=== PATIENT | male | born 1935 | race Caucasian/White ===

== ENCOUNTER 2018-01-06 16:46 | Emergency (ER) | payer MEDICARE ==
[~2018-01-06] VITALS: Ht 175.3 cm; Wt 74.8 kg
[~2018-01-06 16:46] MED LIST: ALBIPROI; ALBU3IS INH; ALBU90OI; ALBU90OI61 INH; AMLO10; AMLO10 PO; AMOCLA875 PO; ASPI81CH PO; ASPI81EC; ATOR10; AZIT500 PO; Bystolic10 MG PO; CEPH500; CEPH500 PO; CLON.1; CLON.1 PO; CLOP75 PO; CODGUAEL PO; CYCL10 PO; ERGO400 PO; FINA5; FINA5 PO; FISH1000; FISH1000 PO; FLUSAL1005; FLUSAL2505 IH; FURO40; GABA100 PO; GUAI600T33; GUAI600T33 PO; HYDACE5 PO; HYDGUAL120; HYDGUAL120 PO; HYDHOMSY PO; IBUP200 PO; IBUP400 PO; IBUP800; IBUP800 PO; INDO50 PO; LEVA.63IS; LEVFLO500 PO; Lutein 15 MG S1 EACH PO; METO50ER PO; NIAC250ER PO; NIAC500ER PO; OMEP20ER; OMEP20ER PO; POTA8; PRAM.125 PO; PRAV20 PO; PREG75 PO; PROAIR RESPICL90 MCG INH; PROCODE120 PO; Prednisone20 MG PO; RXCYCL10 PO; RXHYDACE PO; SEPTRA DS; SPIR25 PO; SULTRIDS PO; TAMS.4ER; TAMS.4ER PO; THEO300ERA; TIOT18 IH; TIOT18 INH; TOLT4 PO; TORSE20 PO; TRIHYD253A; TRIHYD253A PO; TRIHYD253B PO; VERA100; Zithromax250 MG PO
[2018-01-06 18:02] LABS: BASOPHILS ABSOLUTE AUTO 0.04 K/mm3 (0.00-0.23); BASOPHILS PERCENT AUTO 1 % (0-2); EOSINOPHILS ABSOLUTE AUTO 0.06 K/mm3 (0.00-0.68); EOSINOPHILS PERCENT AUTO 1 % (0-6); Hematocrit 43.9 % (37.0-53.0); Hemoglobin 15.5 g/dL (13.5-17.5); IMMATURE GRAN ABSOLUTE AUTO 0.02 K/mm3 (0.00-0.10); IMMATURE GRAN PERCENT AUTO 0 % (0-1); LYMPHOCYTES ABSOLUTE AUTO 1.05 K/mm3 (0.84-5.20); LYMPHOCYTES PERCENT AUTO 18 % (21-46); MONOCYTES PERCENT AUTO 12 % (4-13); Mean Corpuscular HGB 31.1 pg (26.0-34.0); Mean Corpuscular HGB Conc 35.3 g/dL (31.5-36.5); Mean Corpuscular Volume 88 fL (80-100); Mean Platelet Volume 9.6 fL (9.1-12.4); NEUTROPHILS ABSOLUTE AUTO 3.83 K/mm3 (1.96-9.15); NEUTROPHILS PERCENT AUTO 67 % (41-73); Platelet Count 214 K/mm3 (150-400); RDW Coefficient Variation 12.9 % (11.7-14.2); RDW Standard Deviation 41.5 fL (35.1-46.3); Red Blood Cell Count 4.99 M/mm3 (4.30-5.90)
[2018-01-06 18:18] LABS: International Normalized Ratio 0.99; Prothrombin Time Results 10.2 Sec (9.7-11.5)
[2018-01-06 18:39] LABS: Alanine Aminotransfer (ALT/SGP 34 U/L (12-78); Albumin, Blood 3.7 g/dL (3.4-5.0); Alk Phos 116 U/L (50-136); Anion Gap 7 mmol/L (6-16); Aspartate Aminotrans (AST/SGOT 23 U/L (12-37); Bilirubin, Total 0.4 mg/dL (0.1-1.0); Blood Urea Nitrogen 16 mg/dL (8-24); Bun/Creatinine Ratio 15.8 (12.0-20.0); CO2, Blood 28 mmol/L (21-32); Calcium, Blood 9.2 mg/dL (8.5-10.1); Chloride, Blood 99 mmol/L (98-108); Creatinine, Blood 1.01 mg/dL (0.60-1.20); Globulin, Blood 3.8 g/dL (2.2-4.0); Glomerular Filtration Rate >60 (60-); Glucose, Blood 92 mg/dL (70-99); Sodium, Blood 134 mmol/L (136-145); Total Protein, Blood 7.5 g/dL (6.4-8.2)
== END 2018-01-06 20:48 | disposition left against medical advice (07) ==
LOC: ER 16:46
PROVIDERS: Emergency Medicine
DX: Z53.21 Procedure and treatment not carried out due to patient leaving prior to being seen by health care provider (principal)
CPT/HCPCS: 36415; 80053; 85025; 85610; 85730; 93005; 93010

== ENCOUNTER 2018-09-02 11:09 | Emergency (ER) | payer MEDICARE ==
[~2018-09-02] VITALS: Ht 177.8 cm; Wt 77.1 kg
== END 2018-09-02 12:01 | disposition home or self-care (01) ==
LOC: ER 11:09
DX: M53.3 Sacrococcygeal disorders, not elsewhere classified (principal); Z79.899 Other long term (current) drug therapy; Z85.118 Personal history of other malignant neoplasm of bronchus and lung; Z88.8 Allergy status to other drugs, medicaments and biological substances; J44.9 Chronic obstructive pulmonary disease, unspecified; I10 Essential (primary) hypertension; Z87.891 Personal history of nicotine dependence
CPT/HCPCS: 96372; 99283-25; J1100; J1885

== ENCOUNTER 2019-03-11 16:43 | Inpatient (IN) | payer MEDICARE ==
[~2019-03-11] VITALS: Ht 175.3 cm; Wt 65.2 kg
[~2019-03-11 16:43] MED LIST changes: +FLUT1DIS5 INH
[2019-03-11 17:20] LABS: BASOPHILS ABSOLUTE AUTO 0.02 K/mm3 (0.00-0.23); BASOPHILS PERCENT AUTO 0 % (0-2); EOSINOPHILS ABSOLUTE AUTO 0.01 K/mm3 (0.00-0.68); EOSINOPHILS PERCENT AUTO 0 % (0-6); Hematocrit 47.1 % (37.0-53.0); Hemoglobin 16.5 g/dL (13.5-17.5); IMMATURE GRAN ABSOLUTE AUTO 0.05 K/mm3 (0.00-0.10); IMMATURE GRAN PERCENT AUTO 0 % (0-1); LYMPHOCYTES ABSOLUTE AUTO 0.22 K/mm3 (0.84-5.20); LYMPHOCYTES PERCENT AUTO 2 % (21-46); MONOCYTES ABSOLUTE AUTO 0.81 K/mm3 (0.16-1.47); MONOCYTES PERCENT AUTO 7 % (4-13); Mean Corpuscular Volume 88 fL (80-100); Mean Platelet Volume 9.5 fL (9.1-12.4); NEUTROPHILS ABSOLUTE AUTO 11.26 K/mm3 (1.96-9.15); NEUTROPHILS PERCENT AUTO 91 % (41-73); Platelet Count 207 K/mm3 (150-400); RDW Coefficient Variation 13.7 % (11.7-14.2); RDW Standard Deviation 44.4 fL (35.1-46.3); Red Blood Cell Count 5.33 M/mm3 (4.30-5.90); White Blood Cell Count 12.37 K/mm3 (4.00-11.30)
[2019-03-11 17:39] LABS: Alanine Aminotransfer (ALT/SGP 29 U/L (12-78); Albumin, Blood 3.2 g/dL (3.4-5.0); Albumin/Globulin Ratio 0.9 (0.8-1.8); Alk Phos 110 U/L (50-136); Anion Gap 9 mmol/L (6-16); Aspartate Aminotrans (AST/SGOT 28 U/L (12-37); Bilirubin, Total 0.9 mg/dL (0.1-1.0); Blood Urea Nitrogen 16 mg/dL (8-24); Bun/Creatinine Ratio 16.5 (12.0-20.0); CO2, Blood 24 mmol/L (21-32); Calcium, Blood 9.1 mg/dL (8.5-10.1); Chloride, Blood 100 mmol/L (98-108); Creatinine, Blood 0.97 mg/dL (0.60-1.20); Globulin, Blood 3.4 g/dL (2.2-4.0); Glomerular Filtration Rate >60 (60-); Glucose, Blood 102 mg/dL (70-99); Sodium, Blood 133 mmol/L (136-145); Total Protein, Blood 6.6 g/dL (6.4-8.2)
[2019-03-11] MEDS ORDERED: TORSE20 PO (17:49)
[2019-03-11] MEDS ORDERED: Spironolactone25 MG PO (17:49)
[2019-03-11] MEDS ORDERED: Neurontin 100100 MG GT (17:50)
[2019-03-11] MEDS ORDERED: CELECOXIB200 MG PO (17:50)
[2019-03-11] MEDS ORDERED: FINA5 PO (18:58)
[2019-03-11] MEDS ORDERED: Mirapex0.125 MG PO (19:00)
[2019-03-11] MEDS ORDERED: ALBU2.5V5 INH (19:02)
[2019-03-11 23:00] LABS: Source, Urine Clean Catch
[2019-03-11 23:03] LABS: Bilirubin, Urine Neg (Neg); Blood, Urine Neg (Neg); Glucose Qualitative, Urine Neg (Neg); Ketones, Urine 1+ (Neg); Leukocyte Esterase, Urine 1+ (Neg); Nitrite, Urine Neg (Neg); Protein, Urine 1+ (Neg); Urobilinogen, Urine NORM (Normal)
[2019-03-11 23:11] LABS: Appearance, Urine Clear (Clear); Color, Urine Amber (P-Yellow)
[2019-03-11 23:13] LABS: Bacteria Mod /hpf; Red Blood Cells, Urine 0-2 /hpf (0-2); Squamous Epithelial Cells Rare /hpf (Few); White Blood Cells, Urine 0-2 /hpf (0-5)
[2019-03-12 00:26] LABS: Adenovirus Not Detected (NOT DETECT); Bordetella pertussis Not Detected (NOT DETECT); Chlamydophila pneumoniae Not Detected (NOT DETECT); Coronavirus 229E Not Detected (NOT DETECT); Coronavirus HKU1 Not Detected (NOT DETECT); Coronavirus NL63 Not Detected (NOT DETECT); Coronavirus OC43 Not Detected (NOT DETECT); Human Metapneumovirus Not Detected (NOT DETECT); Human Rhinovirus/Enterovirus Detected (NOT DETECT); Influenza A Not Detected (NOT DETECT); Influenza A/2009-H1 Not Detected (NOT DETECT); Influenza A/H1 Not Detected (NOT DETECT); Influenza A/H3 Not Detected (NOT DETECT); Influenza B Not Detected (NOT DETECT); Mycoplasma pneumoniae Not Detected (NOT DETECT); Parainfluenza Virus 1 Not Detected (NOT DETECT); Parainfluenza Virus 2 Not Detected (NOT DETECT); Parainfluenza Virus 3 Not Detected (NOT DETECT); Parainfluenza Virus 4 Not Detected (NOT DETECT); Respiratory Syncytial Virus Not Detected (NOT DETECT)
[2019-03-12 04:02] LABS: Hematocrit 41.8 % (37.0-53.0); Hemoglobin 14.5 g/dL (13.5-17.5); Mean Corpuscular HGB 31.2 pg (26.0-34.0); Mean Corpuscular HGB Conc 34.7 g/dL (31.5-36.5); Mean Corpuscular Volume 90 fL (80-100); Mean Platelet Volume 10.1 fL (9.1-12.4); Platelet Count 147 K/mm3 (150-400); RDW Coefficient Variation 13.9 % (11.7-14.2); RDW Standard Deviation 45.9 fL (35.1-46.3); Red Blood Cell Count 4.65 M/mm3 (4.30-5.90); White Blood Cell Count 10.56 K/mm3 (4.00-11.30)
[2019-03-12 04:28] LABS: Alanine Aminotransfer (ALT/SGP 33 U/L (12-78); Albumin, Blood 2.5 g/dL (3.4-5.0); Albumin/Globulin Ratio 0.9 (0.8-1.8); Alk Phos 71 U/L (50-136); Anion Gap 8 mmol/L (6-16); Aspartate Aminotrans (AST/SGOT 58 U/L (12-37); Bilirubin, Total 0.7 mg/dL (0.1-1.0); Blood Urea Nitrogen 17 mg/dL (8-24); Bun/Creatinine Ratio 20.5 (12.0-20.0); CO2, Blood 25 mmol/L (21-32); Calcium, Blood 8.9 mg/dL (8.5-10.1); Chloride, Blood 102 mmol/L (98-108); Creatinine, Blood 0.83 mg/dL (0.60-1.20); Globulin, Blood 2.9 g/dL (2.2-4.0); Glomerular Filtration Rate >60 (60-); Glucose, Blood 107 mg/dL (70-99); Potassium, Blood 4.2 mmol/L (3.5-5.5); Sodium, Blood 135 mmol/L (136-145); Total Protein, Blood 5.4 g/dL (6.4-8.2)
--- NOTE | 2019-03-12 05:01 | NUR ---
END OF SHIFT SUMMMARY ASSUMED CARE FROM ED, [facility] SPEAKING APPROPRIATLEY WITH STAFF. PT APPEAREDD TO BE AND HAS REMAINED TO BE ALERT AND FULLY ORIENTED. THIS RN HAS NOT WITNESSED ANY SIGN OF CONFUSION OR DISORIENTATION. PT'S COUGHING HAS DECREASED DUE TO MEDICATION. STILL CONTINUES TO BE MOIST AND COARSE BUT NOT OFTEN AND NOT HARSH.PT HAS BEEN UP TO BATHROOM MULTIPLE TIMES THIS SHIFT, SOME SUCCESFUL AND SOMEUNABLE. PT HAD EPISODE OF DIARRHEA THAT RESULTED IN HIM SOILING UNDERWEAR, BED, AND GOWN. THIS HAS NOT HAPPENED SINCE. PT TITRATED FROM 2LNC TO 1LNC. O2 STILL IN PLACE DUE TO EXERTIOANL DYSPNEA. RESP PANEL COLLECTED AND UA COLLECTED. PT HAS NOT PRODUCED ANY SPUTUM OF YET BUT COLLECTION CUP IS AT BEDSIDE. PT HAS BEGUN TO USE CALL LIGHT APPROPRITELY BUT BED ALARM IS IN PLACE DUE TO RESP STATUS AND PT NOT USING THE CALL LIGHT APPROPRIATELY BEFORE. CALL LIGHT IS NEXT TO PT. WILL CONTNUE TO MONITOR PT UNTIL SHIFT CHANGE.
--- NOTE | 2019-03-12 17:39 | NUR ---
SHIFT SUMMARY PT ALERT AND ORIENTED. VS STABLE. O2 SATS REMAIN ABOVE 90% ON 2L NC. BP STABLE. HR AFIB IN THE 70'S. PT DENIES ANY PAIN. LS COARSE AND WHEEZES THROUGHOUT. PT REPORTS HIS COUGH HAS DECREASED THE DAY HAS PROGRESSED. PT ABLE TO WALK TO BATHROOM NEEDED WITH SBA. WILL CONTINUE TO MONITOR AND REPORT TO ONCOMING RN. CALL LIGHT IN REACH.
--- NOTE | 2019-03-13 05:32 | NUR ---
END OF SHIFT SUMMARY NO ACUTE CHANGES THIS SHIFT. VSS. LUNG SOUNDS CONTINUE TO BE VERY MOIST AND COARSE. GUIFENASIN PRN ORDER OBTAINED AND HAS BEEN ADMINISTERED. PT HAS REQUIRED MULTIPLE BREAthing treatments this shift but has maintained spo2's >94% even when not on nc 02. PT HAS CONTINUED TO BE PLEasant aND COOPERAtive WITH STAFF. PT HAS BEEN USING CALL LIGHT APPROPRIATELY. STAFF HAS BEEN ENCOURAGING THE USE OF THE FLUTTER VALVE, PT COMPLIANT WITH THIS WHEN REMINDED. WILL CONTINUE TO MONITOR PT UNTIL SHIFT CHANGE.
--- NOTE | 2019-03-13 12:50 | NUR ---
Upon receiving a spiritual care referral, I visit patient. Patient told me up front that his hearing aide battery had and he lost his other hearing aide completely so communication would be difficult. We managed to do ok with a little effort on my part. 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 Patient clearly has a soft spot for his family and horses (although he had to put his last horse down a few years ago). Patient would tend to loop back to things he had said and repeat himself but maybe add a bit of details to the story. Patient tells me that he his Hinduism of [place] background but that he has gone to buddhism in years. Patient finds inspiration in working hard and being outside and from his family. I listen empathically and provide companionship. Patient responds well and voices gratitude for the visit. I will continue to remain available to patient and family.
--- NOTE | 2019-03-13 17:48 | NUR ---
SHIFT SUMMARY PT ALERT AND ORIENTED. VS STABLE. O2 SATS REMAIN ABOVE 90% ON RA. LS WHEEZES THROUGHOUT. PT COUGHING OCCASIONALLY, BUT NONPRODUCTIVE. BP STABLE. HR AFIB WITH BBB. PT AMBULATED THROUGH HALLS MULTIPLE TIMES TODAY AND TOLERATED WELL. PT DENIES ANY PAIN. WILL CONTINUE TO MONITOR AND REPORT TO ONCOMING RN. CALL LIGHT IN REACH.
[2019-03-14 03:53] LABS: Hematocrit 38.7 % (37.0-53.0); Hemoglobin 13.7 g/dL (13.5-17.5); Mean Corpuscular HGB 31.3 pg (26.0-34.0); Mean Corpuscular HGB Conc 35.4 g/dL (31.5-36.5); Mean Corpuscular Volume 88 fL (80-100); Platelet Count 161 K/mm3 (150-400); RDW Coefficient Variation 14.1 % (11.7-14.2); RDW Standard Deviation 45.8 fL (35.1-46.3); Red Blood Cell Count 4.38 M/mm3 (4.30-5.90); White Blood Cell Count 8.69 K/mm3 (4.00-11.30)
[2019-03-14 04:10] LABS: Anion Gap 7 mmol/L (6-16); Blood Urea Nitrogen 19 mg/dL (8-24); Bun/Creatinine Ratio 26.1 (12.0-20.0); CO2, Blood 26 mmol/L (21-32); Calcium, Blood 9.3 mg/dL (8.5-10.1); Chloride, Blood 100 mmol/L (98-108); Creatinine, Blood 0.73 mg/dL (0.60-1.20); Glomerular Filtration Rate >60 (60-); Glucose, Blood 96 mg/dL (70-99); Potassium, Blood 3.9 mmol/L (3.5-5.5); Sodium, Blood 133 mmol/L (136-145)
--- NOTE | 2019-03-14 05:45 | NUR ---
END OF SHIFT SUMMARY NO ACUTE CHANGES. VSS. LUNG SOUNDS CONTINUE TO SOUND VERY COARSE AND WHEEZY, PER PT THE WHEEZINESS AND SOME COARSENESS IS BASELINE FOR HIM. PT HAS BEEN UP AND OUT OF BED A FEW TIMES THIS SHIFT BUT HAS OTHERWUISE BEEN RESTING IN ROOM W/ THE LIGHTS OUT. PT HAS RECEIVED SOME BREATHING TREATEMENTS. OTHERWISE PT HAS REQUIRED LITTLE FROM STAFF BUT USES CALL LIGHT APPROPRIATELY. WILL CONTINUE TO MONITOR PT UNTIL SHIFT CHANGE.
[2019-03-14] MEDS ORDERED: Q-Tussin100 MG/5 M PO (11:02)
[2019-03-14] MEDS ORDERED: GUAI600T33 PO (11:03)
[2019-03-14] MEDS ORDERED: METO25 PO (11:03)
[2019-03-14] MEDS ORDERED: XARELTO15 MG PO (11:04)
[2019-03-14] MEDS ORDERED: ALBU3IS INH (11:05)
[2019-03-14] MEDS ORDERED: Prednisone10 MG PO (11:06)
--- NOTE | 2019-03-14 14:18 | NUR ---
DISCHARGE NOTE PT ALERT AND ORIENTED. ORDERS FOR DISCHARGE PROVIDED THIS AFTERNOON. PT STATES HE IS COMFORTABLE AND READY TO GO HOME. NEW MEDICATIONS EDUCATED TO PT. DISCHARGE INSTRUCTIONS PROVIDED. IV REMOVED. PT TAKEN OUT BY WHEELCHAIR.
== END 2019-03-14 14:18 | disposition home or self-care (01) | DRG 871 ==
LOC: ER 16:43 → PCU 19:13
PROVIDERS: Emergency Medicine; Internal Medicine; ADMIT Internal Medicine
DX: A41.89 Other specified sepsis (principal); J96.01 Acute respiratory failure with hypoxia; J44.1 Chronic obstructive pulmonary disease with (acute) exacerbation; J44.0 Chronic obstructive pulmonary disease with (acute) lower respiratory infection; R65.20 Severe sepsis without septic shock; Z87.891 Personal history of nicotine dependence; N40.0 Benign prostatic hyperplasia without lower urinary tract symptoms; I10 Essential (primary) hypertension; M19.90 Unspecified osteoarthritis, unspecified site; G62.9 Polyneuropathy, unspecified; K21.9 Gastro-esophageal reflux disease without esophagitis; Z85.118 Personal history of other malignant neoplasm of bronchus and lung; B34.8 Other viral infections of unspecified site; J20.6 Acute bronchitis due to rhinovirus; I48.91 Unspecified atrial fibrillation
CPT/HCPCS: 0099U; 36415; 71046; 80048; 80053; 81001; 82947; 83605; 85025; 85027; 87040; 87086; 93005; 93010; 94640; 94667; 94760; 96365; 96375; 99285-25; J0456; J0696; J1650; J1956; J2930; J7050; J7120

== ENCOUNTER 2019-03-22 16:21 | Observation (INO) | payer MEDICARE ==
[~2019-03-22] VITALS: Ht 175.3 cm; Wt 64.0 kg
[~2019-03-22 16:21] MED LIST changes: +ALBU2.5V5 INH; +CELECOXIB200 MG PO; +METO25 PO; +Mirapex0.125 MG PO; +Neurontin 100100 MG GT; +Prednisone10 MG PO; +Q-Tussin100 MG/5 M PO; +Spironolactone25 MG PO; +XARELTO15 MG PO
[2019-03-22 17:11] LABS: BASOPHILS ABSOLUTE AUTO 0.03 K/mm3 (0.00-0.23); BASOPHILS PERCENT AUTO 0 % (0-2); EOSINOPHILS PERCENT AUTO 0 % (0-6); Hematocrit 46.4 % (37.0-53.0); Hemoglobin 16.4 g/dL (13.5-17.5); IMMATURE GRAN ABSOLUTE AUTO 0.16 K/mm3 (0.00-0.10); IMMATURE GRAN PERCENT AUTO 1 % (0-1); LYMPHOCYTES ABSOLUTE AUTO 0.81 K/mm3 (0.84-5.20); LYMPHOCYTES PERCENT AUTO 6 % (21-46); MONOCYTES ABSOLUTE AUTO 0.91 K/mm3 (0.16-1.47); MONOCYTES PERCENT AUTO 6 % (4-13); Mean Corpuscular HGB 31.6 pg (26.0-34.0); Mean Corpuscular HGB Conc 35.3 g/dL (31.5-36.5); Mean Corpuscular Volume 89 fL (80-100); Mean Platelet Volume 9.8 fL (9.1-12.4); NEUTROPHILS PERCENT AUTO 87 % (41-73); Platelet Count 270 K/mm3 (150-400); RDW Coefficient Variation 13.7 % (11.7-14.2); RDW Standard Deviation 44.8 fL (35.1-46.3); Red Blood Cell Count 5.19 M/mm3 (4.30-5.90); White Blood Cell Count 14.71 K/mm3 (4.00-11.30)
[2019-03-22 17:36] LABS: Alanine Aminotransfer (ALT/SGP 61 U/L (12-78); Albumin, Blood 2.9 g/dL (3.4-5.0); Albumin/Globulin Ratio 0.9 (0.8-1.8); Alk Phos 85 U/L (50-136); Anion Gap 8 mmol/L (6-16); Aspartate Aminotrans (AST/SGOT 25 U/L (12-37); Bilirubin, Total 0.8 mg/dL (0.1-1.0); Blood Urea Nitrogen 26 mg/dL (8-24); Bun/Creatinine Ratio 35.2 (12.0-20.0); CO2, Blood 25 mmol/L (21-32); Calcium, Blood 8.9 mg/dL (8.5-10.1); Chloride, Blood 96 mmol/L (98-108); Creatinine, Blood 0.74 mg/dL (0.60-1.20); Globulin, Blood 3.3 g/dL (2.2-4.0); Glomerular Filtration Rate >60 (60-); Glucose, Blood 122 mg/dL (70-99); Sodium, Blood 129 mmol/L (136-145); Total Protein, Blood 6.2 g/dL (6.4-8.2)
[2019-03-22] MEDS ORDERED: XARELTO10 MG PO (20:07)
[2019-03-22] MEDS ORDERED: CLON.1 PO (20:10)
--- NOTE | 2019-03-22 21:45 | NUR ---
PCU ADMIT PT BROUGHT TO PCU RM 04 FROM ER BY CHAUNCEY @ 9952. PT A&O X4. ABLE TO TO STAND AND AMBULATE TO PCU BED W/ SBA. VSS. LUNG SOUNDS DIM. SPO2 > 92% ON 3L NC. MONITOR SHOWS AFIB, HR 90-120'S, CARDIZEM GTT @ 5 MG/HR. WILL CONTINUE TO MONITOR AND PROVIDE CARE.
[2019-03-22] MEDS ORDERED: PREDNISONE PO (23:46)
[2019-03-22] MEDS ORDERED: AMLO10 PO (23:47)
[2019-03-22] MEDS ORDERED: TIOT18 INH (23:48)
[2019-03-22] MEDS ORDERED: ASPI81CH PO (23:48)
[2019-03-22] MEDS ORDERED: BISA5EC (23:49)
[2019-03-22] MEDS ORDERED: IBUP400 PO (23:50)
--- NOTE | 2019-03-23 01:25 | NUR ---
CRITICAL LACTIC / CALL TO MD CALL TO MD PAULINO @ APPROX 0000 TO REPORT LACTIC ACID OF 3.7 THIS SHIFT. NO NEW ORDERS FROM MD AT THIS TIME.
[2019-03-23 03:37] LABS: Hematocrit 44.7 % (37.0-53.0); Hemoglobin 15.3 g/dL (13.5-17.5); Mean Corpuscular HGB 31.2 pg (26.0-34.0); Mean Corpuscular HGB Conc 34.2 g/dL (31.5-36.5); Mean Corpuscular Volume 91 fL (80-100); Mean Platelet Volume 9.7 fL (9.1-12.4); Platelet Count 239 K/mm3 (150-400); RDW Coefficient Variation 13.9 % (11.7-14.2); RDW Standard Deviation 46.6 fL (35.1-46.3); Red Blood Cell Count 4.91 M/mm3 (4.30-5.90); White Blood Cell Count 12.06 K/mm3 (4.00-11.30)
[2019-03-23 04:04] LABS: Alanine Aminotransfer (ALT/SGP 51 U/L (12-78); Albumin, Blood 2.7 g/dL (3.4-5.0); Albumin/Globulin Ratio 0.8 (0.8-1.8); Alk Phos 83 U/L (50-136); Anion Gap 8 mmol/L (6-16); Aspartate Aminotrans (AST/SGOT 19 U/L (12-37); Bilirubin, Total 1.2 mg/dL (0.1-1.0); Blood Urea Nitrogen 21 mg/dL (8-24); Bun/Creatinine Ratio 28.7 (12.0-20.0); CO2, Blood 27 mmol/L (21-32); Calcium, Blood 8.7 mg/dL (8.5-10.1); Chloride, Blood 96 mmol/L (98-108); Creatinine, Blood 0.73 mg/dL (0.60-1.20); Globulin, Blood 3.2 g/dL (2.2-4.0); Glomerular Filtration Rate >60 (60-); Glucose, Blood 163 mg/dL (70-99); Potassium, Blood 4.3 mmol/L (3.5-5.5); Sodium, Blood 131 mmol/L (136-145); Total Protein, Blood 5.9 g/dL (6.4-8.2)
--- NOTE | 2019-03-23 07:30 | NUR ---
ASSUMED CARE: PT SITTING UPRIGHT IN BED. O2 ON 2L, CARDIZEM GTT OFF AT THIS TIME, HR IN 70S, AFIB. NO ACUTE NEEDS OR CONCERNS
--- NOTE | 2019-03-23 07:34 | NUR ---
SHIFT SUMMARY PT A&O X4. VSS. MONITOR SHOWS AFIB, HR 90-120'S UPON ADMIT W/ CARDIZEM GTT @ 5 MG/HR. HR 60-70'S THIS AM, CARDIZEM GTT PLACED ON STANDBY. CRITICAL LACTIC CALLED TO MD THIS SHIFT W/ NO NEW ORDERS. REPORT GIVEN TO DAY SHIFT RN.
--- NOTE | 2019-03-23 13:00 | NUR ---
[facility]/Advance directive education visit conducted. Patient is sitting up in bed and alert. Patient remembers me from his last hospital stay. Patient tells me about his current medical issues and his desire to do the things he used to do. I talk with patient about new normals and celebrating the things he can do. I listen empathically and provide prayer. I leave the room for a moment and from the hallway I notice patient's spouse, Marianela, walk into patient's room. I re-enter room and discuss with Marianela about the advance directive importance and process. Marianela is very interested in the information and takes a form for patient and one for herself. She states that they will discuss the choices and private and that she will fill out the forms and hand it in either to her PCP or to the hospital. I will continue to remain available to patient and family.
--- NOTE | 2019-03-23 16:08 | NUR ---
REPORT GIVEN TO EULALIO PIERCE. PT AMBULATED TO WHEELCHAIR, TRANSFERRED BY STAFF. PT STATES HE WILL INFORM OF TRANSFER. TELE IN PLACE UPON TRANSFER. NO FURTHER NEEDS AT THIS TIME.
--- NOTE | 2019-03-23 16:27 | NUR ---
SHIFT SUMMARY: PT TRANSFERRED FROM PCU. PT IS A/O X 4 BUT TULE RIVER. NO C/O PAIN. PT TRANSFERRED FROM W/C TO BED WITH X 1 ASSIST. 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 PT WAS ORIENTED TO HIS NEW ROOM, CALL LIGHT, AND NURSING STAFF. PT IS ABLE TO MAKE HIS NEEDS KNOWN AND VERBALIZES AN UNDERSTANDING OF THE USE OF THE CALL LIGHT.
--- NOTE | 2019-03-24 05:37 | NUR ---
SHIFT SUMMARY: A/Ox4. VSS. 02 95-96% on RA. SOB with exertion. Intermittent, congested sounding, non-productive coughing. Expiratory wheezing and inspiratory coarse crackles auscultated bilaterally in posterior lobes. No respiratory distress- resps regular and non-labored. Pt states he does not need an albuterol tx at time of assess. Tele in place- Afib 85. Appeared to have slept most of the night. No complaints at this time. Call button in reach.
[2019-03-24] MEDS ORDERED: TUSSIN CF MULT118 ML PO (10:37)
[2019-03-24] MEDS ORDERED: FLUTICASONE-SA1 EAC2 INH (10:39)
--- NOTE | 2019-03-24 11:15 | NUR ---
PATIENT DISCHARGED HOME WITH . ALL IV LINES DISCONTINUED AND MEDICATIONS FAXED TO [facility].
== END 2019-03-24 11:17 | disposition home or self-care (01) ==
LOC: ER 16:21 → PCU 19:41 → MEDS 03-23 16:06 → ENPENDDIS 03-24 10:18 → MEDS 03-24 11:17
PROVIDERS: Physician Assistant; ADMIT Internal Medicine
DX: J96.01 Acute respiratory failure with hypoxia (principal); J44.1 Chronic obstructive pulmonary disease with (acute) exacerbation; I48.91 Unspecified atrial fibrillation; R65.10 Systemic inflammatory response syndrome (SIRS) of non-infectious origin without acute organ dysfunction; E87.2 Acidosis; I10 Essential (primary) hypertension; N40.0 Benign prostatic hyperplasia without lower urinary tract symptoms; K21.9 Gastro-esophageal reflux disease without esophagitis; G62.9 Polyneuropathy, unspecified; M19.90 Unspecified osteoarthritis, unspecified site; Z79.899 Other long term (current) drug therapy; Z79.51 Long term (current) use of inhaled steroids; Z91.09 Other allergy status, other than to drugs and biological substances; Z88.8 Allergy status to other drugs, medicaments and biological substances
CPT/HCPCS: 36415; 71046; 80053; 83605; 85025; 85027; 93005; 93010; 94640; 94644; 94667; 94760; 94762; 96365; 96366; 96367; 96375; 96376; 99285-25; G0378; J1940; J2930; J3475; J7512

== ENCOUNTER 2020-06-22 08:25 | Inpatient (IN) | payer MEDICARE ==
[~2020-06-22] VITALS: Ht 180.3 cm; Wt 71.8 kg
[~2020-06-22 08:25] MED LIST changes: +Aspirin EC81 MG PO; +BISA5EC; +FLUTICASONE-SA1 EAC2 INH; +PREDNISONE PO; +TUSSIN CF MULT118 ML PO; +XARELTO10 MG PO
[2020-06-22 09:15] LABS: BASOPHILS ABSOLUTE AUTO 0.05 K/mm3 (0.00-0.23); BASOPHILS PERCENT AUTO 1 % (0-2); EOSINOPHILS ABSOLUTE AUTO 0.04 K/mm3 (0.00-0.68); EOSINOPHILS PERCENT AUTO 0 % (0-6); Hemoglobin 18.2 g/dL (13.5-17.5); IMMATURE GRAN ABSOLUTE AUTO 0.19 K/mm3 (0.00-0.10); IMMATURE GRAN PERCENT AUTO 2 % (0-1); LYMPHOCYTES ABSOLUTE AUTO 2.21 K/mm3 (0.84-5.20); LYMPHOCYTES PERCENT AUTO 22 % (21-46); MONOCYTES ABSOLUTE AUTO 0.45 K/mm3 (0.16-1.47); MONOCYTES PERCENT AUTO 4 % (4-13); Mean Corpuscular HGB 30.6 pg (26.0-34.0); Mean Corpuscular Volume 96 fL (80-100); Mean Platelet Volume 10.5 fL (9.1-12.4); NEUTROPHILS ABSOLUTE AUTO 7.35 K/mm3 (1.96-9.15); NEUTROPHILS PERCENT AUTO 71 % (41-73); RDW Coefficient Variation 14.3 % (11.7-14.2); RDW Standard Deviation 49.5 fL (35.1-46.3); Red Blood Cell Count 5.95 M/mm3 (4.30-5.90); White Blood Cell Count 10.29 K/mm3 (4.00-11.30)
[2020-06-22 09:18] LABS: Hematocrit 56.8 % (37.0-53.0)
[2020-06-22 09:48] LABS: Albumin, Blood 3.1 g/dL (3.4-5.0); Albumin/Globulin Ratio 0.9 (0.8-1.8); Bilirubin, Total 1.3 mg/dL (0.1-1.0); Bun/Creatinine Ratio 9.2 (12.0-20.0); Calcium, Blood 9.9 mg/dL (8.5-10.1); Creatinine, Blood 1.31 mg/dL (0.60-1.20); Globulin, Blood 3.3 g/dL (2.2-4.0); Total Protein, Blood 6.4 g/dL (6.4-8.2)
[2020-06-22 09:51] LABS: Source, Urine Catheter
[2020-06-22 09:51] LABS: Troponin I 0.916 ng/mL (0.000-0.040)
[2020-06-22 09:56] LABS: Appearance, Urine Clear (Clear); Bilirubin, Urine Neg (Neg); Blood, Urine 3+ (Neg); Color, Urine Yellow (P-Yellow); Glucose Qualitative, Urine Neg (Neg); Ketones, Urine Neg (Neg); Leukocyte Esterase, Urine Neg (Neg); Nitrite, Urine Neg (Neg); Protein, Urine Neg (Neg); Specific Gravity, Urine 1.015 (1.003-1.022); Urobilinogen, Urine NORM (Normal)
[2020-06-22 10:01] LABS: Platelet Count 67 K/mm3 (150-400)
[2020-06-22 10:11] LABS: Amorphous Light (0-Heavy); Bacteria Rare /hpf; Squamous Epithelial Cells Rare /hpf (Few); White Blood Cells, Urine 0-2 /hpf (0-5)
[2020-06-22 10:20] LABS: U Amphetamine Screen Not Detected; U Barbituate Screen Not Detected; U Benzodiazapine Screen Not Detected; U Buprenorphine Screen Not Detected; U Cannabinoids Screen Not Detected; U Cocaine Screen Not Detected; U Methadone Screen Not Detected; U Methamphetamine Screen Not Detected; U Opiates Screen Not Detected; U Oxycodone Screen Not Detected; U Phencyclidine Screen Not Detected; U Propoxyphene Screen Not Detected
[2020-06-22 10:33] LABS: Influenza A, PCR Negative (NEGATIVE); Influenza B, PCR Negative (NEGATIVE); Resp Syncytial Virus, PCR Negative (NEGATIVE); SARS-Cov-2 (COVID-19) PCR, MMC Negative (NEGATIVE)
[2020-06-22 11:35] LABS: International Normalized Ratio 1.19; Prothrombin Time Results 12.6 Sec (9.7-11.5)
[2020-06-22 14:28] LABS: Prolactin 56.7 ng/mL (2.5-17.4)
--- NOTE | 2020-06-22 15:15 | NUR ---
ASSUMPTION OF CARE PATIENT ARRIVED TO UNIT FROM ER AT 1420. PATIENT VERY [place]. AMS NOTED. PATIENT NOT AWARE WHERE HE IS OR WHY HE IS HERE. PATIENT MUMBLING SPEECH AND DIFFICULT TO UNDERSTAND. HAS REPORTED THAT PATIENT HASN'T BEEN DIAGNOSED WITH DEMENTIA BUT THAT SHE KNOWS HE DOES HAVE IT. REPORTS THAT HIS MENTATION IS MORE ALTERED THAN NORMAL. PATIENT HAS TEMPORAL TEMP OF 95.5 DEGREES FAHRENHEIT. LUNGS WHEEZY AND COARSE THROUGHOUT. PATIENT ON 3 L NC. PATIENT CYANOTIC, MOTTLED AND COLD TO TOUCH. BRUISING/ REDNESS LOCATED ON BILAT HIPS. CONTUSION TO L ELBOW. ABRASIONS TO BILAT ELBOWS. PATIENT IN A.FIB, HR 60S T0 70S. SBP 80S TO 129. PACEMAKER NOTED TO LEFT UPPER CHEST. ABD FIRM. MILD DISTENTION NOTED. TEMP PROBE ISIDRO INSERTED. UA SENT TO LAB. LEVOPHED AT 8 MCG/ MINUTE, NS AT 150 MLS/ HOUR. ECHO BEING PERFORMED AT THIS TIME. IN ROOM. DR. KELLEY AND DR. SALINAS CALLED TO RECEIVE ORDERS FOR ABG, BIPAP, PRECEDEX, ETC. DOCTORS INFORMED THAT PATIENT COARSE AND WHEEZY AND TRYING TO PICK AT MONITORING EQUIPMENT. INDICATED TO CHARGE NURSE, PONCHO GAYLE, THAT SHE WANTED PATIENT TO "JUST BE COMFORTABLE". STATING THAT PATIENT HAS NOT HAD GOOD QUALITY OF LIFE FOR SOMETIME. CHRISTINA WITH PALLIATIVE CARE CAME TO SPEAK WITH PATIENT AND PATIENT'S . AFTER TALKING WITH , DR. SALINAS INFORMED THAT MAKING PATIENT DNR BUT WANTS TO GET DR. SALINAS'S OPINION AND THEN MAY DO HOSPICE OR COMFORT CARE FROM THERE.
--- NOTE | 2020-06-22 15:30 | NUR ---
Met with review or past few months shows consistant decline and less activity more sleeping. worried about quality of life from here on out. Discussed levels of care. we settled on speaking iwht intesivist on what we could offer but no exptrodinary care. agreed to dnr and to see what phsycians could offer that might make him comfortable. Romi chan witnessed dnr order phsysican called.
--- NOTE | 2020-06-22 15:51 | NUR ---
DR. SALINAS HERE AND UPDATED ON PATIENT STATUS. LOOKING AT COMPUTER NOTES AND THEN WILL BE GOING IN ROOM TO SPEAK WITH PATIENT AND .
--- NOTE | 2020-06-22 16:35 | NUR ---
Intesivist in to examine pt . Pt was know to phsycian for pulmonary care. After carful review of symptoms and wishes. Probable needs CT and pressora dn work up for possible acute on chronic event realted to gastrointestinal distress. relayed he would not want cental lines of machines and she feels her has been telling her he is not wanting to suffer. agreed to comfort care. pt proably emeinent will transtion to medical floor and support family.
[2020-06-22 16:53] LABS: Source, Urine Catheter
[2020-06-22 16:58] LABS: Appearance, Urine Hazy (Clear); Bilirubin, Urine Neg (Neg); Blood, Urine 5+ (Neg); Color, Urine Yellow (P-Yellow); Glucose Qualitative, Urine Neg (Neg); Ketones, Urine Neg (Neg); Leukocyte Esterase, Urine 1+ (Neg); Nitrite, Urine Neg (Neg); Protein, Urine 3+ (Neg); Urobilinogen, Urine NORM (Normal)
[2020-06-22 17:10] LABS: Bacteria Mod /hpf; Squamous Epithelial Cells Rare /hpf (Few)
--- NOTE | 2020-06-22 18:00 | NUR ---
PATIENT SUCCESSFULLY TRANSFERRED TO MEDICAL FLOOR ROOM 358. AT BEDSIDE. HEARING AIDES GIVEN TO AND PLACED IN PURSE PER PALLIATIVE CARE NURSE. DENTURES SENT TO MEDICAL FLOOR WITH PATIENT. NO BELONGINGS LEFT IN ROOM.
--- NOTE | 2020-06-22 18:22 | NUR ---
SHIFT SUMMARY ICU TRANSFER THIS EVENING. AT BEDSIDE. PATIENT RESPONSIVE TO PHYSICAL STIMULI ONLY. NO SIGNS OF DISTRESS.
--- NOTE | 2020-06-22 18:36 | NUR ---
PATIENT PATIENT , TIME OF 1829. HOSPITALIST INFORMED. BALL ENDER INFORMED. AT BEDSIDE.
== END 2020-06-22 18:30 | DRG 314 ==
LOC: ER 08:25 → ICUW 13:23 → ICUE 13:23 → MEDS 17:52
PROVIDERS: Emergency Medicine; Internal Medicine Critical Care Medicine; ADMIT Internal Medicine
PROC: 3E033XZ Introduction of Vasopressor into Peripheral Vein, Percutaneous Approach (ICD-10-PCS; principal; 2020-06-22)
DX: I95.9 Hypotension, unspecified (principal); K72.00 Acute and subacute hepatic failure without coma; N17.9 Acute kidney failure, unspecified; E87.2 Acidosis; R57.0 Cardiogenic shock; Z51.5 Encounter for palliative care; Z20.822 Contact with and (suspected) exposure to COVID-19; Z66 Do not resuscitate; T68.XXXA Hypothermia, initial encounter; D69.6 Thrombocytopenia, unspecified; E86.0 Dehydration; I48.0 Paroxysmal atrial fibrillation; I25.10 Atherosclerotic heart disease of native coronary artery without angina pectoris; J44.9 Chronic obstructive pulmonary disease, unspecified; F03.90 Unspecified dementia, unspecified severity, without behavioral disturbance, psychotic disturbance, mood disturbance, and anxiety; R79.89 Other specified abnormal findings of blood chemistry; R74.01 Elevation of levels of liver transaminase levels; N40.0 Benign prostatic hyperplasia without lower urinary tract symptoms; M19.90 Unspecified osteoarthritis, unspecified site; G62.9 Polyneuropathy, unspecified; R29.6 Repeated falls; Z91.81 History of falling; Z95.5 Presence of coronary angioplasty implant and graft; Z95.0 Presence of cardiac pacemaker; Z85.118 Personal history of other malignant neoplasm of bronchus and lung; Z87.891 Personal history of nicotine dependence; Z79.82 Long term (current) use of aspirin; Z78.1 Physical restraint status
CPT/HCPCS: 0241U; 36415; 51701; 51702; 70450; 71045; 72125; 73070; 80053; 81001; 82140; 82272; 82530; 82550; 83605; 84146; 84443; 84484; 85025; 85610; 85730; 87040; 87086; 93005; 93010; 93306; 94640; 96361-59; 96365-59; 96366-59; 96367-59; 96372-59; 96375-59; 99285-25; A9270; G0480; J0696; J2060; J7030; J7060